=== PATIENT | female | born 1975 | race Caucasian/White ===

== ENCOUNTER 2023-06-22 18:02 | Outpatient (RCR) | payer OTHER, SELFPAY | END 2023-06-22 23:59 | disposition home or self-care (01) | LOC: RPT 18:02 | PROVIDERS: ATTENDING PHYSICIAN Orthopaedic Surgery; PRIMARYCARE PHYSICIAN Family Medicine | DX: M22.8X2 Other disorders of patella, left knee (principal); M22.8X1 Other disorders of patella, right knee; M22.42 Chondromalacia patellae, left knee; M22.41 Chondromalacia patellae, right knee | CPT/HCPCS: 97110; 97140; 97161 ==

== ENCOUNTER 2023-07-06 19:00 | Outpatient (RCR) | payer OTHER, SELFPAY | END 2023-07-07 07:42 | disposition home or self-care (01) | LOC: RPT 19:00 | PROVIDERS: ATTENDING PHYSICIAN Orthopaedic Surgery; PRIMARYCARE PHYSICIAN Family Medicine | DX: M22.8X2 Other disorders of patella, left knee (principal); M22.8X1 Other disorders of patella, right knee; M22.42 Chondromalacia patellae, left knee; M22.41 Chondromalacia patellae, right knee; Z73.6 Limitation of activities due to disability; M54.50 Low back pain, unspecified | CPT/HCPCS: 97110; 97112; 97140 ==

== ENCOUNTER → 2023-11-25 08:06 | Outpatient (REF) | payer OTHER, SELFPAY | LOC: WDC 08:06 | PROVIDERS: ATTENDING PHYSICIAN Obstetrics & Gynecology Gynecology | DX: Z12.31 Encounter for screening mammogram for malignant neoplasm of breast (principal); T85.42XA Displacement of breast prosthesis and implant, initial encounter; N63.13 Unspecified lump in the right breast, lower outer quadrant | CPT/HCPCS: 76642; 77063; 77067 ==

== ENCOUNTER → 2024-01-30 06:31 | Day surgery (SDC) | payer OTHER, SELFPAY | LOC: GI 06:31 | PROVIDERS: ATTENDING PHYSICIAN Internal Medicine | DX: Z12.11 Encounter for screening for malignant neoplasm of colon (principal); K63.5 Polyp of colon; K64.8 Other hemorrhoids | CPT/HCPCS: 45380; 88305 ==

== ENCOUNTER → 2024-12-04 17:29 | Outpatient (REF) | payer OTHER, SELFPAY | LOC: WDC 17:29 | PROVIDERS: ATTENDING PHYSICIAN Obstetrics & Gynecology Gynecology; FAMILY PHYSICIAN Emergency Medicine | DX: Z12.31 Encounter for screening mammogram for malignant neoplasm of breast (principal) | CPT/HCPCS: 77063; 77067 ==

== ENCOUNTER → 2025-06-06 16:39 | Outpatient (REF) | payer OTHER, SELFPAY | LOC: RAD 16:39 | PROVIDERS: ATTENDING PHYSICIAN Obstetrics & Gynecology; FAMILY PHYSICIAN Emergency Medicine | DX: N95.9 Unspecified menopausal and perimenopausal disorder (principal); R79.89 Other specified abnormal findings of blood chemistry | CPT/HCPCS: 76536 ==